=== PATIENT | male | born 1980 | race Caucasian/White ===

== ENCOUNTER 2019-11-15 00:27 | Emergency (ER) | payer BC ==
[~2019-11-15] VITALS: Ht 175.3 cm; Wt 99.8 kg
[2019-11-15 00:43] VITALS: BP_SYST 155
--- NOTE | 2019-11-15 00:43 | NUR ---
Patient to ER bed 3 to gown for evaluation. Side rails up.
--- NOTE | 2019-11-15 00:45 | NUR ---
PT A&O X4 CAME FROM HOME C/O OF RIGHT LOWER ABDOMINAL PAIN, 01/24, NON RADITATING THAT STARTED AT MIDNIGHT WHILE HE WAS ASLEEP. PT REPORTS A SHARP PAIN WOKE HIM UP. PTS LAST MEAL WAS AT 6PM TONIGHT. PT DENIES N/V/D. PT TOOK IBUPROFEN AND TYLENOL AROUND 9PM LAST NIGHT FOR A HEADACHE.
--- NOTE | 2019-11-15 00:47 | NUR ---
ER at bedside examining patient.
[2019-11-15] MEDS ORDERED: NACL 0.9% 1,000 ML IV ONE (00:55)
[2019-11-15] MEDS ORDERED: DIPHENHYDRAMINE INJ 50 MG/ML VIAL IVP ONE ×2 (01:00→02:00)
[2019-11-15] MEDS ORDERED: MORPHINE 2 MG/ML INJ. SYRINGE IVP ONE (01:00)
--- NOTE | 2019-11-15 01:05 | NUR ---
# 20 gauge angiocath placed to LAC. Use of asceptic technique. Opsite placed over site. Blood return noted. Blood, blood cultures, lactic for lab drawn from site. Flushed with 10 cc of normal saline. No evidence of infiltration noted. Patient tolerated well.
[2019-11-15] MEDS ORDERED: MORPHINE 4 MG/ML INJ. SYRINGE IVP ONE ×2 (01:15→02:00)
--- NOTE | 2019-11-15 01:15 | NUR ---
PT UNABLE TO USE RESTROOM AT THIS TIME.
[2019-11-15 01:20] LABS: BASOPHILS # (AUTO) 0.1 K/uL (0.0-0.2); BASOPHILS % (AUTO) 0.6 % (0.0-2.0); EOSINOPHILS # (AUTO) 0.2 K/uL (0.0-0.4); EOSINOPHILS % (AUTO) 1.7 % (0.0-4.0); HEMATOCRIT 44.9 % (36-54); HEMOGLOBIN 15.4 g/dL (14.0-18.0); LYMPHOCYTES # (AUTO) 3.3 K/uL (1.0-5.5); LYMPHOCYTES % (AUTO) 30.6 % (20.5-51.5); MEAN CORPUSCULAR HEMOGLOBIN 31 pg (27-31); MEAN CORPUSCULAR HGB CONC 34 % (32-36); MEAN CORPUSCULAR VOLUME 91 fL (79.0-98.0); MONOCYTES # (AUTO) 0.9 K/uL (0.0-1.0); MONOCYTES % (AUTO) 8.8 % (1.7-9.3); NEUTROPHILS # (AUTO) 6.2 K/uL (1.8-7.7); NEUTROPHILS % (AUTO) 58.3 % (40.0-70.0); PLATELET COUNT (AUTO) 221 K/uL (130-430); RED BLOOD CELL COUNT(AUTO) 4.96 MIL/uL (4.2-6.2); RED CELL DISTRIBUTION WIDTH 12.8 % (9.0-15.0); WHITE BLOOD COUNT (AUTO) 10.6 K/uL (4.8-10.8)
[2019-11-15 01:28] LABS: CREATININE 1.41 mg/dL (0.55-1.30); POTASSIUM 3.4 mmol/L (3.5-5.1)
[2019-11-15 01:34] LABS: ALBUMIN 4.2 g/dL (3.4-4.8); TOTAL BILIRUBIN 0.9 mg/dL (0.0-1.0)
--- NOTE | 2019-11-15 01:36 | NUR ---
Patient transported to radiology via gurney, accompanied by stephany.
--- NOTE | 2019-11-15 01:47 | NUR ---
PT RETURNED FROM CT. PT STILL HAS 10/10 PAIN. NOTIFIED.
[2019-11-15] MEDS ORDERED: KETOROLAC TROMETHAMINE 30 MG VIAL IVP ONE (02:30)
--- NOTE | 2019-11-15 02:35 | NUR ---
PT REPORTS PAIN IS 10/10. MD NOTIFIED AND TO ORDER TORADOL BE GIVEN IV PUSH.
[2019-11-15 02:56] LABS: BILIRUBIN,URINE NEGATIVE (NEGATIVE); BLOOD, URINE 3+ (NEGATIVE); CLARITY/URINE CLEAR (CLEAR); COLOR,URINE YELLOW (YELLOW); GLUCOSE,URINE NEGATIVE (NEGATIVE); KETONES,URINE NEGATIVE (NEGATIVE); LEUKOCYTE ESTERASE ,URINE NEGATIVE (NEGATIVE); NITRITE, URINE NEGATIVE (NEGATIVE); PH,URINE 5.5 (5.0-8.0); PROTEIN URINE TRACE (NEGATIVE); UROBILINOGEN,URINE 0.2 (0.2-1.0)
[2019-11-15 03:09] LABS: BACTERIA,URINE FEW /HPF (None Seen); RBC,URINE 20-50 /HPF (0-3); WBC,URINE 0-3 /HPF (0-3)
[2019-11-15 03:14] LABS: URINE SULFO SALICYLIC ACID 1+ (NEGATIVE)
--- NOTE | 2019-11-15 03:28 | NUR ---
PT LAYING IN BED, MOANING AND GROANING. VITAL SIGNS STABLE.
[2019-11-15] MEDS ORDERED: fentaNYL CITRATE/PF 100 MCG/2 ML AMP IVP ONE (04:00)
--- NOTE | 2019-11-15 04:15 | NUR ---
PT PAIN 10. THE TORADOL SEEMED TO RELIEVE THE PAIN FOR A BIT THEN THE PAIN SHOT BACK UP TO A 02/23. MD NOTIFIED.
[2019-11-15 05:52] VITALS: BP_SYST 135
--- NOTE | 2019-11-15 05:52 | NUR ---
Patient given written and verbal discharge instructions and verbalizes understanding. ER MD discussed with patient the results and treatment provided. Patient in stable condition. ID arm band removed. IV catheter removed intact and dressing applied, no active bleeding. Rx of norco and ibuprofen given. Patient educated on pain management and to follow up with PMD. Pain Scale 5/10. Opportunity for questions provided and answered. Medication side effect fact sheet provided.
== END 2019-11-15 05:52 | disposition home or self-care (01) ==
LOC: SED 00:27
DX: N23 Unspecified renal colic (principal); N21.1 Calculus in urethra; R11.2 Nausea with vomiting, unspecified; I10 Essential (primary) hypertension; E78.5 Hyperlipidemia, unspecified; Z87.442 Personal history of urinary calculi
CPT/HCPCS: 36415; 74176; 80053; 81000; 85025; 96361; 96374; 96375; 96376; 99285; J1200; J1885; J2270; J3010; J7030

== ENCOUNTER 2021-11-03 20:46 | Emergency (ER) | payer BC ==
[~2021-11-03] VITALS: Ht 177.8 cm; Wt 104.3 kg
[2021-11-03 20:46] VITALS: BP_SYST 123
[2021-11-03] MEDS ORDERED: ACETAMINOPHEN 500 MG TABLET PO ONE (21:30)
[2021-11-03] MEDS ORDERED: IPRATROPIUM/ALBUTEROL SULFATE 3 ML AMPUL.NEB (DUONEB) INH ONE (21:30)
[2021-11-03] MEDS ORDERED: IBUPROFEN 800 MG TABLET PO ONE (23:15)
[2021-11-03] MEDS ORDERED: NACL 0.9% 1,000 ML IV ONE (23:15)
--- NOTE | 2021-11-03 23:50 | NUR ---
FIRST CONTACT WITH PT. PT PLACED ON MONITOR, IV ESTABLISHED AND WILL FOLLOW THROUGH WITH CURRENT ORDERS.
[2021-11-03] MEDS ORDERED: ALBU2.5V7 INH (23:59)
[2021-11-03] MEDS ORDERED: NEBU-249 MC (23:59)
--- NOTE | 2021-11-04 01:54 | NUR ---
DC INSTRUCTIONS GIVEN TO PT WITH FULL RETURNED VERBAL UNDERSTANDING. NO S/S OF DISTRESS NOTED. IV DC'D, CATHETER INTACT. SMALL PRESSURE DRESSING APPLIED. ESCRIPT SENT TO PT PHARMACY OF CHOICE. PT AMBULATES WITH STEADY GAIT TO EXIT.
[2021-11-04 01:57] VITALS: BP_SYST 119
== END 2021-11-04 01:57 | disposition home or self-care (01) ==
LOC: SED 20:46
DX: U07.1 COVID-19 (principal); Z79.899 Other long term (current) drug therapy
CPT/HCPCS: 36415; 71045; 87426; 87804 ×2; 93005; 94640; 96360; 99285; J7030